=== PATIENT | male | born 1980 ===

== ENCOUNTER 2017-09-03 05:58 | Day surgery (SDC) | payer OTHER ==
[~2017-09-03] VITALS: Ht 172.7 cm; Wt 89.8 kg
[2017-09-03] MEDS ORDERED: PERCOCET 5-3251 EACH PO (12:03)
[2017-09-03] MEDS ORDERED: RECTICARE30 GM TOP (12:03)
== END 2017-09-03 15:45 | disposition home or self-care (01) ==
LOC: ER 05:58 → O/R 07:42 → SEC-K 07:42 → ER 07:42 → SEC-K 08:37 → O/R 08:37 → CIR.AMB 12:00
DX: K60.3 Anal fistula (principal); K61.0 Anal abscess

== ENCOUNTER 2018-03-02 08:15 | Day surgery (SDC) | payer OTHER ==
[~2018-03-02 08:15] MED LIST: PERCOCET 5-3251 EACH PO; RECTICARE30 GM TOP
== END 2018-03-02 15:09 | disposition home or self-care (01) ==
LOC: AMB-ENDOS 08:15
DX: K64.8 Other hemorrhoids (principal); R19.4 Change in bowel habit; K92.1 Melena

== ENCOUNTER 2019-10-31 06:11 | Day surgery (SDC) | payer OTHER ==
[~2019-10-31 06:11] MED LIST changes: +HUMIRA40 MG/0.2 IM
[2019-10-31] MEDS ORDERED: PERCOCET 5-3251 EACH PO (09:04)
[2019-10-31] MEDS ORDERED: RECTICARE30 GM TOP (09:10)
== END 2019-10-31 15:25 | disposition home or self-care (01) ==
LOC: CIR.AMB 06:11 → ADM 12:45 → CIR.AMB 15:25
PROVIDERS: ATTEND Surgery
DX: K64.8 Other hemorrhoids (principal); K64.2 Third degree hemorrhoids